=== PATIENT | male | born 1985 | race African-American/Black ===

== ENCOUNTER 2021-05-02 07:36 | Inpatient (IN) | payer OTHER ==
[~2021-05-02] VITALS: Ht 175.3 cm; Wt 74.0 kg
[~2021-05-02 07:36] MED LIST: LEVE500T19 PO
[2021-05-02] MEDS ORDERED: LORAZEPAM 2MG/ML CPJ IM STA (07:52)
[2021-05-02] MEDS ORDERED: LEVETIRACETAM 1000MG PREMIX 100 ML IV ONE (08:00)
[2021-05-02 08:27] LABS: BASOPHILS % 2.2 % (0.0-2.0); HEMATOCRIT. 46.4 % (42.0-52.0); HEMOGLOBIN. 14.7 g/dL (14.0-18.0); LYMPHOCYTES % 21.2 % (20.0-50.0); MEAN CORPUSCULAR HEMOGLOBIN 28.3 pg (28.0-32.0); MEAN CORPUSCULAR VOLUME 89.1 fL (80.0-94.0); MONOCYTES % 8.3 % (2.0-8.0); NEUTROPHILS % 67.3 % (40.0-76.0); RED BLOOD CELL COUNT 5.21 mill/uL (4.7-6.1); RED CELL DISTRIBUTION WIDTH 14.2 % (11.6-14.6)
[2021-05-02 08:34] LABS: CHLORIDE 104 mEq/L (98-107)
[2021-05-02 08:40] LABS: ETHANOL BLOOD < 10 mg/dL
[2021-05-02] MEDS ORDERED: LIDOCAINE HCL/PF 1% 10 MG/ML 5ML VIAL INFIL ONE (09:45)
[2021-05-02] MEDS ORDERED: TETANUS, DIPHTHERIA, PERTUSSIS VAC/PF 0.5ML (>10YR OLD) IM ONE (09:45)
[2021-05-02 10:05] LABS: CHLORIDE 104 mEq/L (98-107)
[2021-05-02 10:14] LABS: PLATELET 347 x1000/uL (130-400)
[2021-05-02] MEDS ORDERED: IPRATROPIUM/ALBUTEROL 0.5-3(2.5)MG/3ML NEB HHN PRN (13:45)
[2021-05-02] MEDS ORDERED: LORAZEPAM 2MG/ML CPJ IV PRN (13:45)
[2021-05-02] MEDS ORDERED: LEVETIRACETAM 500 MG in SODIUM CHLORIDE 0.9% 100 ML IV SCH (13:45)
[2021-05-02] MEDS ORDERED: ACETAMINOPHEN 325MG TABLET PO PRN (13:45)
[2021-05-02] MEDS ORDERED: CLONIDINE 0.1MG TABLET PO PRN (13:45)
[2021-05-02] MEDS ORDERED: MORPHINE SULFATE 2 MG/ML CPJ (NOT FOR IM USE) IV PRN (13:45)
[2021-05-02] MEDS ORDERED: DIPHENHYDRAMINE 50MG/ML VIAL IV PRN (13:45)
[2021-05-02] MEDS ORDERED: ONDANSETRON HCL 4MG/2ML INJ IV PRN (13:45)
[2021-05-02] MEDS ORDERED: NALOXONE HCL 0.4MG/ML VIAL IV PRN (14:00)
[2021-05-02 17:20] VITALS: BP 146/87
[2021-05-02] MEDS ORDERED: INFLUENZA VACCINE 05/PF 0.5 ML SYRINGE IM ONE (18:30)
[2021-05-02 20:00] VITALS: BP 127/95
[2021-05-02] MEDS ORDERED: LEVETIRACETAM 500MG PREMIX 100 ML IV SCH (21:00)
[2021-05-02] MEDS: LEVETIRACETAM 500MG PREMIX 100 ML IV SCH (22:22)
[2021-05-03] VITALS: BP 121/85
[2021-05-03 04:00] VITALS: BP 116/83
[2021-05-03 06:51] LABS: BASOPHILS % 0.9 % (0.0-2.0); HEMATOCRIT. 40.3 % (42.0-52.0); HEMOGLOBIN. 13.3 g/dL (14.0-18.0); LYMPHOCYTES % 21.5 % (20.0-50.0); MEAN CORPUSCULAR HEMOGLOBIN 28.7 pg (28.0-32.0); MEAN CORPUSCULAR VOLUME 86.9 fL (80.0-94.0); MEAN PLATELET VOLUME 7.6 fl (7.4-10.4); MONOCYTES % 10.3 % (2.0-8.0); NEUTROPHILS % 65.3 % (40.0-76.0); PLATELET 289 x1000/uL (130-400); RED BLOOD CELL COUNT 4.64 mill/uL (4.7-6.1); RED CELL DISTRIBUTION WIDTH 13.6 % (11.6-14.6)
[2021-05-03 06:56] LABS: CHLORIDE 100 mEq/L (98-107)
[2021-05-03 07:21] LABS: LDL CHOLESTEROL 114 mg/dL (5-100)
[2021-05-03 07:24] LABS: HDL CHOLESTEROL 92 mg/dL (40-59)
[2021-05-03] MEDS: LEVETIRACETAM 500MG PREMIX 100 ML IV SCH (10:25)
[2021-05-03] MEDS ORDERED: LEVE750T4 MT (15:03)
[2021-05-03 15:18] VITALS: BP 119/87
== END 2021-05-03 16:15 | disposition home or self-care (01) | DRG 115 ==
LOC: ER 07:36 → EDBEDREQ 11:15 → MICUSO 13:02 → EDBEDREQ 13:04 → EDBEDREQTM 13:04 → 8WST 17:35
PROVIDERS: ADMIT Internal Medicine; ATTEND Internal Medicine
PROC: 0HQ1XZZ Repair Face Skin, External Approach (ICD-10-PCS; principal; 2021-05-02)
PROC: 0HQ0XZZ Repair Scalp Skin, External Approach (ICD-10-PCS; 2021-05-02)
DX: S02.2XXA Fracture of nasal bones, initial encounter for closed fracture (principal); S02.85XA Fracture of orbit, unspecified, initial encounter for closed fracture; F17.210 Nicotine dependence, cigarettes, uncomplicated; R00.0 Tachycardia, unspecified; G40.909 Epilepsy, unspecified, not intractable, without status epilepticus; S01.511A Laceration without foreign body of lip, initial encounter; S01.81XA Laceration without foreign body of other part of head, initial encounter; T42.6X6A Underdosing of other antiepileptic and sedative-hypnotic drugs, initial encounter; X58.XXXA Exposure to other specified factors, initial encounter; Y93.89 Activity, other specified; Y92.480 Sidewalk as the place of occurrence of the external cause; Y99.8 Other external cause status; Y92.89 Other specified places as the place of occurrence of the external cause
CPT/HCPCS: 36415; 70486; 80048; 80053; 80061; 80320; 84443; 85025; 90715; 93970; 99285; J1953; J2060; J3490; G0480

== ENCOUNTER 2021-09-07 09:12 | Emergency (ER) | payer OTHER ==
[~2021-09-07] VITALS: Ht 182.9 cm; Wt 83.0 kg
[~2021-09-07 09:12] MED LIST changes: +LEVE750T4 MT
[2021-09-07] MEDS ORDERED: SODIUM CHLORIDE 0.9% 1,000 ML IV ONE (09:45)
[2021-09-07] MEDS ORDERED: LEVETIRACETAM 500MG PREMIX 100 ML IV ONE (09:45)
[2021-09-07 10:06] LABS: BASOPHILS % 0.4 % (0.0-2.0); EOSINOPHILS % 0.3 % (0.0-5.0); HEMATOCRIT. 44.4 % (42.0-52.0); HEMOGLOBIN. 14.7 g/dL (14.0-18.0); MEAN CORPUSCULAR HEMOGLOBIN 28.1 pg (28.0-32.0); MEAN CORPUSCULAR VOLUME 85.1 fL (80.0-94.0); MEAN PLATELET VOLUME 7.8 fl (7.4-10.4); MONOCYTES % 5.3 % (2.0-8.0); PLATELET 331 x1000/uL (130-400); RED BLOOD CELL COUNT 5.23 mill/uL (4.7-6.1)
[2021-09-07 10:13] LABS: CHLORIDE 102 mEq/L (98-107)
[2021-09-07 10:18] LABS: ETHANOL BLOOD < 10 mg/dL
[2021-09-07 10:25] LABS: PHENOBARBITAL < 2.1 ug/mL (15.0-40.0)
[2021-09-07 10:28] LABS: CARBAMAZEPINE < 0.5 ug/mL (4-12); VALPROIC ACID < 3.0 ug/mL (50-100)
[2021-09-07] MEDS ORDERED: LEVE750T4 MT (12:27)
[2021-09-07] MEDS ORDERED: IBUPROFEN 400MG TABLET PO ONE (12:30)
[2021-09-07 13:50] VITALS: BP 135/91
== END 2021-09-07 13:50 | disposition home or self-care (01) ==
LOC: ER 09:12
DX: R56.9 Unspecified convulsions (principal); F12.10 Cannabis abuse, uncomplicated; Z91.14 Patient's other noncompliance with medication regimen; Z98.890 Other specified postprocedural states
CPT/HCPCS: 36415; 80053; 80156; 80165; 80184; 80185; 80320; 85025; 93005; 96365; 99284; J1953; J7030; G0480